=== PATIENT | female | born 1965 | race Caucasian/White ===

== ENCOUNTER 2017-07-17 16:53 | Emergency (ER) | payer OTHER ==
[~2017-07-17] VITALS: Ht 162.6 cm; Wt 87.6 kg
[2017-07-17 17:04] VITALS: TEMP 37.2; Ht 162.6 cm; Wt 87.6 kg
[2017-07-17] MEDS ORDERED: ASPI1TAB83 PO (17:17)
[2017-07-17] MEDS ORDERED: CHOL200010 PO (17:17)
[2017-07-17] MEDS ORDERED: MULT-513 PO (17:17)
[2017-07-17] MEDS ORDERED: CARV6.252 PO (17:17)
[2017-07-17] MEDS ORDERED: ATOR-22 PO (17:17)
[2017-07-17] MEDS ORDERED: CYAN500T PO (17:17)
[2017-07-17] MEDS ORDERED: OXYCODONE/ACETAMINOPHEN 5-325 TAB PO STA (17:31)
--- NOTE | 2017-07-17 18:21 | DIAGNOSTIC IMAGING REPORT ---
RIGHT SHOULDER 3 VIEWS HISTORY: R shoulder pain COMPARISON: None. FINDINGS: There is no fracture or dislocation. Extensive calcification at the supraspinatus consistent with calcific tendinitis. The right clavicle is intact. No radiopaque foreign bodies. IMPRESSION: 1. No fracture or dislocation within the right shoulder. 2. Supraspinatus calcific tendinitis. Electronically signed by: Drake Gillespie M.D. 07/17/2017 6:19 PM Dictated Date/Time: 07/17/2017 6:18 PM
[2017-07-17] MEDS ORDERED: PRED20TA2 PO (18:41)
[2017-07-17] MEDS ORDERED: OXYC-57 PO (18:41)
[2017-07-17 18:54] VITALS: BP 138/79; PULSE 84; O2SAT 99
--- NOTE | 2017-07-18 11:02 | EMERGENCY ROOM VISIT NOTE ---
ED Visit Note First contact with patient: 17:11 Chief Complaint: I'm having severe right shoulder pain. History of Present Illness: Ms. Tolentino is a 52-year-old white female who ambulates into the ED accompanied by male friend complaining of right shoulder pain. Historically patient reports she has been having ongoing shoulder pain with a last 4-5 months. She reports 3 days ago she was seen at the [facility] for another medical problem and inform them that she was having shoulder pain. They did an initial x-ray which showed calcified tendinosis and recommended an MRI; which they performed, to evaluate for any ligamentous tearing that would require surgery. They reported the MRI was negative I day later and she was encouraged to seek local orthopedic care for possible steroid injections. Patient reports since returning from [facility] she reports she has been having increasing pain with all movements of the shoulder. Pain is located over the superior aspect of the glenohumeral joint and throughout the middle trapezius. She describes her pain as a constant deep achy sensation and sharp with movement. Her pain is radiating down the upper arm to just above the elbow. Her pain worsens with all movement of the shoulder and movements of the elbow, forearm and wrist. He has not identified any alleviating factors related to the pain. She reports she has been taking [id number] medications without relief. Associated with her pain she reports she has a mild tingling sensation in her hand. She denies recent trauma, skin eruptions, skin color changes, neck pain, previous surgeries, arm weakness, finger coldness. Review of Systems: As noted above in history of present illness. Past Medical History: Hypertension, bariatric surgery, status post bariatric surgery, hysterectomy, tonsillectomy, uvulectomy, section Current Medications: Medications Dose Route/Sig Max Daily Dose Days Date Category Dose Instructions Vitamin B-12 (Cyanocobalamin) 500 Mcg Tab 500 Mcg PO DAILY 07/17/17 Reported Mvi With Minerals (Multivitamins/Minerals) Tab 1 Tab PO DAILY 07/17/17 Reported Vitamin D (Cholecalciferol) 2,000 Unit Cap 1 Tab PO DAILY 07/17/17 Reported Lipitor (Atorvastatin Calcium) 20 Mg Tab 20 Mg PO DAILY 07/17/17 Reported Aspirin 81 Mg Tab 1 Tab PO DAILY 90 07/17/17 Reported Coreg (Carvedilol) 6.25 Mg Tab 6.25 Mg PO BID 07/17/17 Reported Allergies to Medications: [place]. Social History: Patient is currently employed; she lives with her and feels safe in her home environment; she denies tobacco and alcohol use. Physical Examination: Vital Signs: Date Time Temp Pulse Resp B/P (MAP) Pulse Ox O2 Delivery O2 Flow Rate FiO2 07/17/17 18:54 84 16 138/79 99 07/17/17 17:04 37.2 85 16 142/88 97 Room Air GENERAL: 52-year-old female in moderate distress due to pain, nontoxic-appearing , afebrile and hemodynamically stable. NEUROLOGICAL: Awake, alert and oriented to person, place and time. Answering questions appropriately and following commands. SKIN: Warm, dry and pink. No soft tissue eruptions or trauma noted. HEENT: Atraumatic and normocephalic. BACK: No tenderness over the bony thoracic and lumbar spine. Moderate tenderness throughout the middle trapezius muscle without muscle spasm. RIGHT UPPER SHOULDER: No gross bony deformity. No tenderness over the sternoclavicular joint, clavicle, acromioclavicular joint. Diffuse tenderness over the superior aspect of the glenohumeral joint, the mid trapezius, and minimally over the bicipital groove area and the deltoid bursa. There is no signs of infection with erythema or cyanotic changes to the skin. There is no swelling. I do not appreciate any bony deformity, joint deformity or bony crepitus. Because of her discomfort she refuses to do any range of motion or muscle strength testing at the level of the shoulder. With the shoulder stabilize she does have full range of motion in flexion and extension of the elbow, pronation and supination of forearm and flexion, extension and radial and ulnar deviation of the wrist. With muscle strength testing at does refer pain into her shoulders and her strength in all movements of the elbow and forearm are 3/5 and all movements of the wrist are 4/5. Throughout the lower arm the skin is warm and pink and capillary refill is brisk. Distal pulses are intact. She is able to distinguish light sensations through all dermatomes. ED Course: Patient is assessed as noted above. Patient's medications were reviewed. Patient was given ice and one Percocet 5/325 mg tablet by mouth for pain. Right Shoulder X-Rays: Were read by myself and the radiologist and shows extensive calcification at the supraspinatus consistent with calcified tendinitis. Patient was placed in a shoulder sling. Patient was educated about today's findings and instructed on her treatment plan ; she verbalized understanding and agreement with this plan. Clinical Impression: Right shoulder calcified tendinitis. Decision-Making: Initially my differential diagnosis I considered tendinitis, bursitis, rotator cuff injury, dislocation, fracture, acromioclavicular joint separation and other causes. Disposition: Patient discharged home in stable condition accompanied by her ; prior to departure she was reassessed and subjectively reported she was feeling slightly better and rated her discomfort 6/10. Plan: Comfort measures including rest with sling, ice, sliding pain scale of ibuprofen , see acetaminophen and Percocet were discussed with the patient; patient was given appropriate narcotic precautions and her name was checked in the state database and no red flags were noted. Additionally patient was placed on prednisone 60 mg once a day for 5 days. Patient was encouraged to contact environmental permitting specialist, Dr. Busby, and request follow-up care and treatment. Patient was encouraged return ED for worsening/uncontrolled pain, shoulder/arm swelling, worsening numbness/tingling, arm weakness or any new/concerning symptoms.
== END 2017-07-17 18:56 | disposition home or self-care (01) ==
LOC: C.EDB 16:54 → C.EDD 18:56
DX: M75.31 Calcific tendinitis of right shoulder (principal); I10 Essential (primary) hypertension; Z98.84 Bariatric surgery status; Z90.710 Acquired absence of both cervix and uterus

== ENCOUNTER → 2017-08-05 | Outpatient (CLI) | payer OTHER ==
[~2017-08-05] MED LIST: ASPI1TAB83 PO; ATOR-22 PO; CARV6.252 PO; CHOL200010 PO; CYAN500T PO; MULT-513 PO; OXYC-57 PO
[2017-08-05 17:35] LABS: BASO % 0.2 %; BASO ABS # 0.01 K/uL (0-0.2); COMPLETE YES; EOS % 2.6 %; HEMATOCRIT 42.2 % (37-47); IG% 0.3 %; LYMPH % 40.6 %; LYMPH ABS # 2.64 K/uL (1.2-3.4); MEAN CELL VOLUME 93.4 fL (80-100); MEAN CORPUSCULAR HEMOGLOBIN 31.2 pg (25-34); MEAN CORPUSCULAR HGB CONC 33.4 g/dl (32-36); MEAN PLATELET VOLUME 9.3 fL (7.4-10.4); MONO % 9.1 %; NEUT % 47.2 %; PLATELET COUNT 347 K/uL (130-400); RED BLOOD COUNT 4.52 M/uL (4.2-5.4)
[2017-08-05 18:00] LABS: BLOOD UREA NITROGEN 18 mg/dl (7-18); BUN/CREATININE RATIO 26.2 (10-20); CALCIUM 9.4 mg/dl (8.5-10.1); CARBON DIOXIDE 30 mmol/L (21-32); CHLORIDE 106 mmol/L (98-107); CREATININE 0.69 mg/dl (0.60-1.20); GLUCOSE 90 mg/dl (70-99); POTASSIUM 3.9 mmol/L (3.5-5.1); SODIUM 140 mmol/L (136-145)
== END | disposition home or self-care (01) ==
LOC: C.LAB 16:27
PROVIDERS: ATTEND Orthopaedic Surgery
DX: Z01.810 Encounter for preprocedural cardiovascular examination (principal); M75.31 Calcific tendinitis of right shoulder

== ENCOUNTER → 2017-09-11 | Day surgery (SDC) | payer OTHER ==
[2017-08-19 15:50] VITALS: Ht 162.6 cm; Wt 81.8 kg
[~2017-09-11] VITALS: Ht 162.6 cm; Wt 81.8 kg
[~2017-09-11] MED LIST changes: -OXYC-57 PO
== END | disposition home or self-care (01) ==
LOC: EDSTATUS 08:15 → C.PAT 15:37
PROVIDERS: ATTEND Orthopaedic Surgery
DX: M75.31 Calcific tendinitis of right shoulder (principal)

== ENCOUNTER → 2017-12-05 | Outpatient (CLI) | payer OTHER ==
[2017-12-05 16:47] LABS: BASO % 0.1 %; BASO ABS # 0.01 K/uL (0-0.2); EOS % 2.3 %; EOS ABS # 0.17 K/uL (0-0.5); HEMATOCRIT 39.6 % (37-47); HEMOGLOBIN 13.3 g/dL (12.0-16.0); IG# 0.03 K/uL (0.00-0.02); LYMPH % 35.1 %; LYMPH ABS # 2.56 K/uL (1.2-3.4); MEAN CORPUSCULAR HEMOGLOBIN 31.2 pg (25-34); MEAN CORPUSCULAR HGB CONC 33.6 g/dl (32-36); MEAN PLATELET VOLUME 9.1 fL (7.4-10.4); MONO % 8.6 %; MONO ABS # 0.63 K/uL (0.11-0.59); NEUT % 53.5 %; NEUT ABS # 3.89 K/uL (1.4-6.5); PLATELET COUNT 331 K/uL (130-400); RED CELL DISTRIBUTION WIDTH CV 12.5 % (11.5-14.5); WHITE BLOOD COUNT 7.29 K/uL (4.8-10.8)
[2017-12-05 17:11] LABS: ALBUMIN 4.2 gm/dl (3.4-5.0); ALT/SGPT 28 U/L (12-78); AST/SGOT 12 U/L (15-37); BLOOD UREA NITROGEN 20 mg/dl (7-18); CALCIUM 9.5 mg/dl (8.5-10.1); CARBON DIOXIDE 31 mmol/L (21-32); CREATININE 0.54 mg/dl (0.60-1.20); GLUCOSE 91 mg/dl (70-99); POTASSIUM 3.8 mmol/L (3.5-5.1); SODIUM 140 mmol/L (136-145)
[2017-12-05 17:21] LABS: ALKALINE PHOSPHATASE 63 U/L (45-117); TOTAL PROTEIN 7.4 gm/dl (6.4-8.2)
[2017-12-08 15:30] LABS: MICROSOMAL AB <1 IU/ML (<9)
== END | disposition home or self-care (01) ==
LOC: C.LABBC 15:25
PROVIDERS: ATTEND Ophthalmology
DX: E06.9 Thyroiditis, unspecified (principal)

== ENCOUNTER → 2017-12-19 | Outpatient (CLI) | payer OTHER ==
[~2017-12-19] MED LIST changes: +GADAVIST IV PRN
--- NOTE | 2017-12-19 10:43 | DIAGNOSTIC IMAGING REPORT ---
ORBIT COMBO CLINICAL HISTORY: 52 years-old Female presenting with E06.9 right eye pain, swelling, and redness, headache behind the right eye with nausea for 2 weeks. TECHNIQUE: Multisequence, multiplanar MR imaging of the orbits was performed before and after the administration of intravenous contrast. IV contrast: 8 mL of Gadavist. COMPARISON: None. FINDINGS: Localizer images: Unremarkable. The pituitary gland is flattened in the sella compatible with an "empty sella", which can be an incidental normal variant. No tonsillar ectopia no papilledema. No abnormal fluid along the optic nerves. No tortuosity of the optic nerves. No intraorbital fat infiltration. No thickening of the intraorbital muscles. The globes are normal. No abnormal enhancement on postcontrast imaging. No mass lesion. Visualized portion of the brain parenchyma normal. Ventricles and sulci normal in size. Polypoid mucosal thickening in the right maxillary sinus. IMPRESSION: Normal MR examination of the orbits. Electronically signed by: Wyatt Velazquez M.D. 12/19/2017 10:42 AM Dictated Date/Time: 12/19/2017 10:37 AM
== END | disposition home or self-care (01) ==
LOC: C.MRI 09:09
PROVIDERS: ATTEND Ophthalmology
DX: E06.9 Thyroiditis, unspecified (principal)